=== PATIENT | male | born 1960 | race Caucasian/White ===

== ENCOUNTER 2017-08-03 06:19 | Emergency (ER) | payer OTHER ==
[~2017-08-03] VITALS: Ht 172.7 cm; Wt 99.8 kg
--- NOTE | 2017-08-03 06:21 | PHYS DOC ---
Adult General Chief Complaint Chief Complaint: HIP PAIN HPI HPI Patient is a 56 year old male who presents with left hip pain. He states been going on for last month. He states he's been intermittently taking ibuprofen for his symptoms. He states he has some decreased sensation over the anterior thigh but denies any weakness. He states last night it popped and hurt more and then his pain resolved until this morning when his pain has returned again. He states it's worse when he is up walking around on it which she has to do at work constantly. He denies any trauma to the area. He also complains of some tightness in his left calf area. Review of Systems Review of Systems Constitutional: Denies fever or chills [] Eyes: Denies change in visual acuity, redness, or eye pain [] HENT: Denies nasal congestion or sore throat [] Respiratory: Denies cough or shortness of breath [] Cardiovascular: No additional information not addressed in HPI [] GI: Denies abdominal pain, nausea, vomiting, bloody stools or diarrhea [] : Denies dysuria or hematuria [] Musculoskeletal: Denies back pain, positive for left hip pain Integument: Denies rash or skin lesions [] Neurologic: Denies headache, focal weakness or sensory changes [] Endocrine: Denies polyuria or polydipsia [] Current Medications Current Medications Current Medications Medications (Trade) Dose Ordered Sig/Vadim Start Time Stop Time Status Last Admin Dose Admin Acetaminophen/ Hydrocodone Bitart (Lortab 5/325) 2 tab 1X ONCE 08/03/17 07:00 08/03/17 07:01 DC 08/03/17 07:34 2 TAB Allergies Allergies Allergies Coded Allergies Type Severity Reaction Last Updated Verified No Known Allergies Allergy Unknown 08/03/17 Yes Physical Exam Physical Exam Constitutional: Well developed, well nourished, no acute distress, non-toxic appearance. [] HENT: Normocephalic, atraumatic, bilateral external ears normal, oropharynx moist, no oral exudates, nose normal. [] Eyes: PERRLA, EOMI, conjunctiva normal, no discharge. [] Neck: Normal range of motion, no tenderness, supple, no stridor. [] Cardiovascular:Heart rate regular rhythm, no murmur [] Lungs & Thorax: Bilateral breath sounds clear to auscultation [] Abdomen: Bowel sounds normal, soft, no tenderness, no masses, no pulsatile masses. [] Skin: Warm, dry, no erythema, no rash. [] Back: No tenderness, no CVA tenderness. [] Extremities: Tender palpation with range of motion over the left hip, no cyanosis, no clubbing, ROM intact, no edema. Strength is 5 out of 5 in ankle, knee, and hip with flexion and extension. Dorsal pedis pulse 2+ in the left lower extremities Neurologic: Alert and oriented X 3, normal motor function, normal sensory function, no focal deficits noted. [] Psychologic: Affect normal, judgement normal, mood normal. [] Current Patient Data Vital Signs Vital Signs Date Time Temp Pulse Resp B/P (MAP) Pulse Ox O2 Delivery O2 Flow Rate FiO2 08/03/17 06:25 97.8 75 16 98 Room Air 97.8 EKG EKG [] Radiology/Procedures Radiology/Procedures [place] [id number] IMAGING REPORT Signed PATIENT: VANCE GALVAN ACCOUNT: [id number] : 1960 LOCATION: ER AGE: 56 SEX: M EXAM STATUS: REG ER ORD. PHYSICIAN: GEOVANNA PENDLETON MD REASON: pain PROCEDURE: HIP LEFT 2V WITH PELVIS Indication pain. An AP view of the pelvis was obtained as well as targeted AP and frog leg views of the left hip. No bony abnormality is seen DICTATED and SIGNED BY: RULA MOSHER MD DATE: 08/03/17723 CC: GEOVANNA PENDLETON MD; NO PCP ~ [address] [id number] IMAGING REPORT Signed PATIENT: VANCE GALVAN ACCOUNT: [id number] : 1960 LOCATION: ER AGE: 56 SEX: M EXAM STATUS: REG ER ORD. PHYSICIAN: GEOVANNA PENDLETON MD REASON: calf pain PROCEDURE: VENOUS LOWER EXTREMITY LEFT Indication pain. Grayscale color Doppler and spectral imaging was performed. Examination was targeted to the veins of the left lower extremity. The common femoral, femoral and popliteal vessels demonstrate normal flow compressibility and augmentation. No thrombus is seen. The visualized calf veins appeared unremarkable. A fluid collection was noted in the popliteal space compatible with a Reinoso's cyst. IMPRESSION: Negative left lower extremity venous analysis for DVT DICTATED and SIGNED BY: RULA MOSHER MD DATE: 08/03/17724 CC: GEOVANNA PENDLETON MD; NO PCP ~ Impressions: Left hip pain Course & Med Decision Making Course & Med Decision Making Pertinent Labs and Imaging studies reviewed. (See chart for details) Ultrasound and x-rays of the left hip and left lower leg nonacute. Patient pain is controlled this time. Patient will need to follow-up with orthopedic surgery if his symptoms don't improve or get worse. Return precautions given. He is agreeable to the plan and being discharged in stable condition. Dragon Disclaimer Dragon Disclaimer This electronic medical record was generated, in whole or in part, using a voice recognition dictation system. Departure Departure Impression: Primary Impression: Hip pain Disposition: 01 HOME, SELF-CARE Condition: STABLE Referrals: LORENZA VASQUEZ II, MD Patient Instructions: Hip Pain Additional Instructions: The x-rays of your left hip in addition to the ultrasound revealed left leg did not show any acute abnormalities. Your being discharged home. You can use Flexeril as instructed to see if some muscle spasm related injury. Flexeril can make you sleepy therefore don't drive or taking it or he can use it before you go to bed. Do not take [place] which is a narcotic type pain medicine with Flexeril. If Flexeril doesn't help you can try [place] for pain. Again do not drive or drink alcohol while taking [place] as it can impair your judgment and make you sleepy. You can follow-up with orthopedic surgery if her pain doesn't get better or resolved. Please call their office and schedule follow-up point. If your pain gets uncontrollable you have weakness or numbness or other concerns please return back to ER. Scripts Cyclobenzaprine Hcl (CYCLOBENZAPRINE HCL) 10 Mg Tablet 1 TAB PO QHS Y for MUSCLE PAIN, #15 TAB Prov: GEOVANNA PENDLETON MD 08/03/17 Hydrocodone/Apap 5-325 (NORCO 5-325 TABLET) 1 Each Tablet 1-2 TAB PO PRN Q6HRS Y for PAIN, #14 TAB 0 Refills Prov: GEOVANNA PENDLETON MD 08/03/17 Problem Qualifiers Primary Impression: Hip pain Laterality: left Qualified Codes: M25.552 - Pain in left hip GEOVANNA PENDLETON MD Aug 03, 2017 06:21
[2017-08-03 06:25] VITALS: BP 158/90
[2017-08-03] MEDS ORDERED: HYDROcodone/APAP 5/325MG 1 TAB TABLET PO ONE (07:00)
--- NOTE | 2017-08-03 07:27 | RAD ---
Indication pain. An AP view of the pelvis was obtained as well as targeted AP and frog leg views of the left hip. No bony abnormality is seen
--- NOTE | 2017-08-03 07:29 | RAD ---
Indication pain. Grayscale color Doppler and spectral imaging was performed. Examination was targeted to the veins of the left lower extremity. The common femoral, femoral and popliteal vessels demonstrate normal flow compressibility and augmentation. No thrombus is seen. The visualized calf veins appeared unremarkable. A fluid collection was noted in the popliteal space compatible with a Reinoso's cyst. IMPRESSION: Negative left lower extremity venous analysis for DVT
[2017-08-03] MEDS ORDERED: HYDR-971 PO (07:55)
[2017-08-03] MEDS ORDERED: CYCL10TA2 PO (07:55)
== END 2017-08-03 08:01 | disposition home or self-care (01) ==
LOC: ER 06:19
DX: M25.552 Pain in left hip (principal)
CPT/HCPCS: 73502; 93971; 99284-25